=== PATIENT | female | born 1980 | race Caucasian/White ===

== ENCOUNTER → 2019-11-30 | Outpatient (CLI) | payer OTHER ==
[2019-11-30 09:25] LABS: Basophils # (A) 0.1 k/uL (0-0.2); Basophils % (A) 1 %; Eosinophils # (A) 0.4 k/uL (0-0.7); Eosinophils % (A) 5 %; HCT 45.3 % (34.0-46.0); HGB 14.7 gm/dL (11.4-16.0); Lymphocytes # (A) 1.7 k/uL (1.0-4.8); Lymphocytes % (A) 22 %; MCH 31.5 pg (25.0-35.0); MCHC 32.4 g/dL (31.0-37.0); MCV 97.1 fL (80.0-100.0); Mean Platelet Volume 7.3; Monocytes # (A) 0.3 k/uL (0-1.0); Monocytes % (A) 4 %; Neutrophils # (A) 5.1 k/uL (1.3-7.7); Neutrophils % (A) 66 %; Platelet Count 304 k/uL (150-450); RBC 4.67 m/uL (3.80-5.40); RDW 13.1 % (11.5-15.5); WBC 7.6 k/uL (3.8-10.6)
[2019-11-30 16:57] LABS: ALT 15 U/L (8-44); AST 17 U/L (13-35); African American GFR (CKD) 107.6 (60.0-200.0); Albumin/Globulin Ratio 2.76 (1.60-3.17); Alkaline Phosphatase 47 U/L (41-126); BUN/Creat Ratio 11.25 Ratio (12.00-20.00); Calcium 9.8 mg/dL (8.7-10.3); Carbon Dioxide 23.4 mmol/L (21.6-31.8); Chloride 111 mmol/L (96-109); Chol/HDL Ratio 2.22; Cholesterol 160 mg/dL (0-200); Globulin 1.7 g/dL (1.6-3.3); Glucose 98 mg/dL (70-110); Lithium 0.5 mmol/L (0.5-1.2); Non-African American GFR(CKD) 92.9 (60.0-200.0); Potassium 4.3 mmol/L (3.5-5.5); Sodium 140 mmol/L (135-145); Total Protein 6.4 g/dL (6.2-8.2); Triglycerides <50.0 mg/dL (0.0-149.0)
[2019-11-30 17:07] LABS: Hemoglobin A1C 5.1 % (4.0-6.0)
== END | disposition home or self-care (01) ==
LOC: LABWHC1 08:59
PROVIDERS: ATTEND Psychiatry & Neurology Psychiatry
DX: Z51.81 Encounter for therapeutic drug level monitoring (principal); Z79.899 Other long term (current) drug therapy
CPT/HCPCS: 36415; 80053; 80061; 80178; 82306; 83036; 85025

== ENCOUNTER 2020-10-02 17:29 | Emergency (ER) | payer OTHER ==
[2020-10-02 17:46] VITALS: BP 140/85; PULSE 84; RESP 20; TEMP 99.1
[2020-10-02 18:03] LABS: Appearance,Urine Clear (Clear); Bilirubin,Urine Negative (Negative); Blood,Urine Small (Negative); Color,Urine Light Yellow; Glucose,Urine (UA) Negative (Negative); Ketones,Urine Negative (Negative); Leukocyte Esterase,Urine Small (Negative); Mucus,Urine Rare /hpf; Nitrite,Urine Negative (Negative); Protein,Urine Negative (Negative); RBC,Urine 3 /hpf (0-5); Specific Gravity,Urine 1.015 (1.001-1.035); Squamous Epithelial Cell,Urine 7 /hpf (0-4); Urobilinogen,Urine <2.0 mg/dL (<2.0); WBC,Urine 3 /hpf (0-5)
--- NOTE | 2020-10-02 18:25 | ED ---
General Adult HPI - General Chief complaint: Anxiety Stated complaint: Anxiety Time Seen by Provider: 10/02/20 18:02 Source: patient Mode of arrival: ambulatory Limitations: no limitations - History of Present Illness Initial comments: Dictation was produced using [email or web address] dictation software. please excuse any grammatical, word or spelling errors. This patient was cared for during a federal and state declared state of emergency secondary to Covid 19 Chief Complaint: 40-year-old male presents with insomnia and racing thoughts History of Present Illness: 40-year-old female she has positive psychiatric history. Patient's diagnosed with bipolar disease and is a patient at [facility]. Patient states that over the last couple days she's been having difficulty sleeping due to racing thoughts. Patient has no medical complaints at this time. She denies any suicidal or homicidal ideation. Patient denies any paranoia. She states she feels slightly anxious. She normally takes Klonopin however ran out recently. She is not scheduled to have a refill for couple weeks. The ROS documented in this emergency department record has been reviewed and confirmed by me. Those systems with pertinent positive or negative responses have been documented in the HPI. All other systems are other negative and/or noncontributory. PHYSICAL EXAM: General Impression: Alert and oriented x3, not in acute distress HEENT: Normocephalic atraumatic, extra-ocular movements intact, pupils equal and reactive to light bilaterally, mucous membranes moist. Cardiovascular: Heart regular rate and rhythm Chest: Able to complete full sentences, no retractions, no tachypnea Abdomen: abdomen soft, non-tender, non-distended, no organomegaly Musculoskeletal: Pulses present and equal in all extremities, no peripheral edema Motor: no focal deficits noted Neurological: CN II-XII grossly intact, no focal motor or sensory deficits noted Skin: Intact with no visualized rashes Psych: Normal affect and mood ED course: 40 yo female presents today with insomnia and racing thoughts. She has history of bipolar disease. From a psychiatric standpoint patient does not appear to be overtly psychotic as upon arrival are within acceptable limits. Patient is agreeable for being evaluated by EPS. Evaluation evaluation fetus recommended discharge. - Related Data Home Medications Medication Instructions Recorded Confirmed 5-Hydroxytryptophan (5-Htp) [5-Htp 100 mg PO HS 10/02/20 10/02/20 (Natrol)] Cholecalciferol [Vitamin D3 (25 1,000 unit PO DAILY 10/02/20 10/02/20 Mcg = 1000 Iu)] [place] Carbonate [[place] 600 mg PO BID 10/02/20 10/02/20 Carbonate ER] Melatonin 5 mg PO HS PRN 10/02/20 10/02/20 clonazePAM [KlonoPIN] 0.5 mg PO DAILY PRN 10/02/20 10/02/20 traZODone HCL [Desyrel] 25 - 50 mg PO HS PRN 10/02/20 10/02/20 Previous Rx's Medication Instructions Recorded clonazePAM [KlonoPIN] 0.5 mg PO ONCE PRN 2 Days #2 tablet 10/02/20 Allergies Allergy/AdvReac Type Severity Reaction Status Date / Time Sulfa (Sulfonamide Allergy Rash/Hives Verified 10/02/20 20:10 Antibiotics) Review of Systems ROS Statement: Those systems with pertinent positive or pertinent negative responses have been documented in the HPI. ROS Other: All systems not noted in ROS Statement are negative. Past Medical History Past Medical History: No Reported History History of Any Multi-Drug Resistant Organisms: None Reported Past Surgical History: Orthopedic Surgery Additional Past Surgical History / Comment(s): lt clavicle,lt foot Past Psychological History: Anxiety, Bipolar, Depression Smoking Status: Former smoker Past Alcohol Use History: Occasional Past Drug Use History: Marijuana General Exam Limitations: no limitations Course Vital Signs 10/02/20 17:41 Temperature 99.1 F Pulse Rate 84 Respiratory 20 Rate Blood Pressure 140/85 O2 Sat by Pulse 99 Oximetry Medical Decision Making - Lab Data Lab Results 10/02/20 10/02/20 Range/Units 17:52 17:52 Urine Color Light Yellow Urine Appearance Clear (Clear) Urine pH 6.0 (5.0-8.0) Ur Specific [place] 1.015 (1.001-1.035) Urine Protein Negative (Negative) Urine Glucose (UA) Negative (Negative) Urine Ketones Negative (Negative) Urine Blood Small H (Negative) Urine Nitrite Negative (Negative) Urine Bilirubin Negative (Negative) Urine Urobilinogen <2.0 (<2.0) mg/dL Ur Leukocyte Esterase Small H (Negative) Urine RBC 3 (0-5) /hpf Urine WBC 3 (0-5) /hpf Ur Squamous Epith Cells 7 H (0-4) /hpf Urine Mucus Rare H (None) /hpf Urine HCG, Qual Not Detected (Not Detectd) Urine Opiates Screen Not Detected (NotDetected) Ur Oxycodone Screen Not Detected (NotDetected) Urine Methadone Screen Not Detected (NotDetected) Ur Propoxyphene Screen Not Detected (NotDetected) Ur Barbiturates Screen Not Detected (NotDetected) U Tricyclic Antidepress Not Detected (NotDetected) Ur Phencyclidine Scrn Not Detected (NotDetected) Ur Amphetamines Screen Not Detected (NotDetected) U Methamphetamines Scrn Not Detected (NotDetected) U Benzodiazepines Scrn Not Detected (NotDetected) Urine Cocaine Screen Not Detected (NotDetected) U Marijuana (THC) Screen Not Detected (NotDetected) Disposition Clinical Impression: Insomnia Disposition: HOME SELF-CARE Instructions (If sedation given, give patient instructions): Insomnia (ED) Additional Instructions: Follow-up with [facility] for refill on your anxiolytic medications and follow-up of insomnia and anxiety. Prescriptions: clonazePAM [KlonoPIN] 0.5 mg PO ONCE PRN 2 Days #2 tablet PRN Reason: Insomnia Is patient prescribed a controlled substance at d/c from ED?: Yes If prescribed controlled substance>3 days was MAPS reviewed?: Prescribed <3 Days Referrals: Gerson Hurst MD [Primary Care Provider] - 1-2 days Time of Disposition: 21:32
[2020-10-02 18:32] LABS: Amphetamine Screen,Urine Not Detected (NotDetected); Barbiturate Screen,Urine Not Detected (NotDetected); Benzodiazepines Screen,Urine Not Detected (NotDetected); Cocaine Screen,Urine Not Detected (NotDetected); Methadone Screen, Urine Not Detected (NotDetected); Opiate Screen,Urine Not Detected (NotDetected); Oxycodone Screen, Urine Not Detected (NotDetected); Phencyclidine Screen,Urine Not Detected (NotDetected); Tricyclic Antidepressant,Urine Not Detected (NotDetected); Urn Cannabinoid Scrn Not Detected (NotDetected)
[2020-10-02] MEDS ORDERED: ALPRAZolam 0.5 MG TAB PO STA (18:44)
[2020-10-02] MEDS ORDERED: clonazePAM 0.5 MG TAB PO STA (21:30)
--- NOTE | 2020-10-02 21:46 | ED ---
Medical Decision Making - Lab Data Lab Results 10/02/20 10/02/20 Range/Units 17:52 17:52 Urine Color Light Yellow Urine Appearance Clear (Clear) Urine pH 6.0 (5.0-8.0) Ur Specific [place] 1.015 (1.001-1.035) Urine Protein Negative (Negative) Urine Glucose (UA) Negative (Negative) Urine Ketones Negative (Negative) Urine Blood Small H (Negative) Urine Nitrite Negative (Negative) Urine Bilirubin Negative (Negative) Urine Urobilinogen <2.0 (<2.0) mg/dL Ur Leukocyte Esterase Small H (Negative) Urine RBC 3 (0-5) /hpf Urine WBC 3 (0-5) /hpf Ur Squamous Epith Cells 7 H (0-4) /hpf Urine Mucus Rare H (None) /hpf Urine HCG, Qual Not Detected (Not Detectd) Urine Opiates Screen Not Detected (NotDetected) Ur Oxycodone Screen Not Detected (NotDetected) Urine Methadone Screen Not Detected (NotDetected) Ur Propoxyphene Screen Not Detected (NotDetected) Ur Barbiturates Screen Not Detected (NotDetected) U Tricyclic Antidepress Not Detected (NotDetected) Ur Phencyclidine Scrn Not Detected (NotDetected) Ur Amphetamines Screen Not Detected (NotDetected) U Methamphetamines Scrn Not Detected (NotDetected) U Benzodiazepines Scrn Not Detected (NotDetected) Urine Cocaine Screen Not Detected (NotDetected) U Marijuana (THC) Screen Not Detected (NotDetected) Disposition Clinical Impression: Insomnia Disposition: HOME SELF-CARE Instructions (If sedation given, give patient instructions): Insomnia (ED) Additional Instructions: [facility] for refill on your anxiolytic medications and follow-up of insomnia and anxiety. Prescriptions: clonazePAM [KlonoPIN] 0.5 mg PO ONCE PRN 2 Days #2 tablet PRN Reason: Insomnia Eszopiclone [Lunesta] 1 mg PO HS PRN 3 Days #3 tab PRN Reason: Insomnia Is patient prescribed a controlled substance at d/c from ED?: Yes If prescribed controlled substance>3 days was MAPS reviewed?: Prescribed <3 Days Referrals: Gerson Hurst MD [Primary Care Provider] - 1-2 days Time of Disposition: 21:46
[2020-10-02] MEDS ORDERED: TEMAZEPAM 15 MG CAP PO PRN (22:00)
== END 2020-10-02 22:12 | disposition home or self-care (01) ==
LOC: EC 17:29
DX: F41.9 Anxiety disorder, unspecified (principal); F31.9 Bipolar disorder, unspecified; Z79.899 Other long term (current) drug therapy; Z88.2 Allergy status to sulfonamides; Z87.891 Personal history of nicotine dependence
CPT/HCPCS: 80306; 81001; 81025; 82075; 99284